=== PATIENT | male | born 1955 | race African-American/Black ===

== ENCOUNTER 2015-11-05 09:12 | Inpatient (IN) | payer OTHER ==
[~2015-11-05] VITALS: Ht 185.4 cm; Wt 113.4 kg
[~2015-11-05 09:12] MED LIST: ACIDOPHILUS-PE1 EACH PO; ADVIL200 MG PO; ANTIHYPERTENSIVE PO; ASPIR-LOW81 MG PO; CARDURA1 M1 PO; CARDURA4 MG PO; GLUCOSE4 GM PO; HYDROCHLOROTHIA25 MG PO; JUICE PLUS GARDEN PO; JUICE PLUS PO; LANTUS 10100 UNITS/ SC; LISINOPRIL2.5 MG PO; LISINOPRIL20 MG PO; LISINOPRIL40 MG PO; MORPHINE SULFAT30 M1 PO; MORPHINE SULFAT60 MG PO; PERCOCET 10/1 TABLET PO; PREDNISONE10 MG PO; PREDNISONE20 MG PO; SIMVASTATIN10 MG PO; SLEEP AID; VALIUM5 MG PO; VERAPAMIL HCL360 MG PO; [UNRECOGNIZED DRUG - OTHER] PO
[2016-02-02] MEDS ORDERED: MORPHINE SULFAT15 MG PO (14:18)
[2016-02-02] MEDS ORDERED: LANTUS 10100 UNITS/ SC (14:19)
[2016-02-02] MEDS ORDERED: NOVOLOG 10100 UNITS/ SC (14:20)
[2016-05-10] MEDS ORDERED: VERAPAMIL HCL120 M2 PO (10:45)
[2016-05-10] MEDS ORDERED: ZESTRIL20 MG PO (10:46)
[2016-05-10] MEDS ORDERED: NEURONTIN100 MG PO (10:46)
[2016-05-10] MEDS ORDERED: NEURONTIN300 MG PO (10:49)
[2016-05-11 06:56] VITALS: BP 131/78
[2016-05-11 07:02] LABS: MCH 31.1 PG (29.0-34.0); MCHC 33.7 G/DL (30.0-36.0); MCV 92.3 FL (86-99); MEAN PLAT.VOLUME 11.7 uM^3 (9.0-12.4); PLATELET COUNT 186 K/uL (156-360); RBC DIS.WIDTH-CV 13.1 % (11.8-14.6); RBC DIS.WIDTH-SD 43.5 % (39-53); RED BLOOD COUNT 4.66 M/uL (4.00-5.50); WHITE BLOOD COUNT 8.9 K/uL (4.1-10.2)
[2016-05-11 07:47] LABS: ANION GAP 11 MEQ/L (2-14); CHLORIDE 103 MEQ/L (99-109); GFR ESTIMATE (CALCULATED) > 59 mL/min/; GLUCOSE 150 mg/dL (70-99); POTASSIUM 4.1 MEQ/L (3.7-5.4); SAMPLE HEMOLYSIS CHECK 0; SAMPLE ICTERIC CHECK 0; SAMPLE LIPEMIA CHECK 0; SODIUM 138 MEQ/L (136-147); UREA NITROGEN (BUN) 15 mg/dL (9-23)
[2016-05-11 17:01] LABS: POINT-OF-CARE METER ID UU13113675
[2016-05-11 18:00] VITALS: BP 145/77
[2016-05-11 18:10] VITALS: BP 145/77
[2016-05-11 19:51] VITALS: BP 131/73
[2016-05-11 23:04] VITALS: BP 129/60
[2016-05-12 05:32] LABS: HEMATOCRIT 32.5 % (38.0-50.0); MCH 29.6 PG (29.0-34.0); MCHC 32.6 G/DL (30.0-36.0); MCV 90.8 FL (86-99); PLATELET COUNT 144 K/uL (156-360); RBC DIS.WIDTH-CV 13.2 % (11.8-14.6); RBC DIS.WIDTH-SD 42.7 % (39-53)
[2016-05-12 05:36] LABS: RED BLOOD COUNT 3.58 M/uL (4.00-5.50); WHITE BLOOD COUNT 12.4 K/uL (4.1-10.2)
[2016-05-12 08:30] VITALS: BP 131/60
[2016-05-12 11:30] VITALS: BP 136/71
[2016-05-12 12:03] LABS: POINT-OF-CARE METER ID UU14188577
[2016-05-12 16:28] VITALS: BP 131/61
[2016-05-12 23:41] VITALS: BP 130/62
[2016-05-13 07:41] VITALS: BP 125/69
[2016-05-13 16:47] VITALS: BP 127/71
[2016-05-13 17:04] LABS: POINT-OF-CARE METER ID UU14188577
[2016-05-14 00:09] VITALS: BP 128/63
[2016-05-14 06:57] LABS: POINT-OF-CARE METER ID UU14188577
[2016-05-14 08:12] VITALS: BP 109/61
[2016-05-14 15:31] VITALS: BP 114/55
[2016-05-14 17:10] LABS: POINT-OF-CARE METER ID UU14149397
[2016-05-14 21:07] LABS: POINT-OF-CARE METER ID UU14188577
[2016-05-14 23:56] VITALS: BP 126/63
[2016-05-15 06:12] LABS: POINT-OF-CARE METER ID UU14149397
[2016-05-15 07:46] VITALS: BP 126/69
[2016-05-15 12:18] LABS: POINT-OF-CARE METER ID UU14188577
[2016-05-15 16:02] VITALS: BP 129/60
[2016-05-15 21:48] LABS: POINT-OF-CARE METER ID UU14188577
[2016-05-15 23:53] VITALS: BP 130/61
[2016-05-16 08:23] VITALS: BP 141/68
[2016-05-16 16:37] LABS: POINT-OF-CARE METER ID UU14149397
[2016-05-16 17:12] VITALS: BP 125/59
[2016-05-16 22:48] LABS: POINT-OF-CARE METER ID UU14188577
[2016-05-17 00:09] VITALS: BP 125/63
[2016-05-17 06:26] LABS: POINT-OF-CARE METER ID UU14188577
[2016-05-17 07:38] VITALS: BP 132/68
[2016-05-17] MEDS ORDERED: CYCLOBENZAPRINE10 MG PO (09:40)
[2016-05-17] MEDS ORDERED: DILAUDID4 MG PO (09:40)
[2016-05-17 11:51] LABS: POINT-OF-CARE METER ID UU14188577
[2016-05-17 16:28] VITALS: BP 126/50
[2016-05-17 16:53] LABS: POINT-OF-CARE METER ID UU14188577
[2016-05-17 21:55] LABS: POINT-OF-CARE METER ID UU14188577
[2016-05-18 00:01] VITALS: BP 126/64
[2016-05-18 07:13] LABS: POINT-OF-CARE METER ID UU14188577
[2016-05-18 08:32] VITALS: BP 118/58
[2016-05-18 15:54] VITALS: BP 137/78
[2016-05-18 17:21] LABS: POINT-OF-CARE METER ID UU14188577
== END 2016-05-18 18:45 | disposition home or self-care (01) | DRG 460 ==
LOC: 2SOUTH → 3EAST 05-11 06:00 → 2SOUTH 05-11 07:46 → 3EAST 05-11 17:56
PROVIDERS: Neurological Surgery
DX: M48.07 Spinal stenosis, lumbosacral region (principal); M51.17 Intervertebral disc disorders with radiculopathy, lumbosacral region; M43.17 Spondylolisthesis, lumbosacral region; I10 Essential (primary) hypertension; E11.9 Type 2 diabetes mellitus without complications; Z79.82 Long term (current) use of aspirin; Z79.4 Long term (current) use of insulin; F41.9 Anxiety disorder, unspecified
CPT/HCPCS: 72020; 76000; 80048; 82948; 85027; 86850; 86900; 86901; 86920; 93005; 95886; 95938; C1713; J0330; J0690; J1100; J1170; J1815; J2250; J2405; J3010; J3370; J3480; P9016; S0020